=== PATIENT | male | born 1955 | race Caucasian/White ===

== ENCOUNTER 2018-12-29 18:58 | Emergency (ER) | payer MEDICARE ==
--- NOTE | 2018-12-29 20:37 | Emergency Department Report ---
Blank Doc - Documentation Documentation: This is a 63 y.o. male that presents with inability to void since 1300. History of BPH. He was seen at [facility] today. They took a catheter out and he voided once while in office and haven't voided since. He reports constant pressure to suprapubic region. This initial assessment diagnostic orders/clinical plan/treatment (s) is/Are subject change based on patient's health status, clinical progression and re- assessment by fellow clinical providers in the ED. Further treatment and work-up at subsequent clinical providers discretion. Patient/guardians urged not to elope from their condition may be serious if not clinically assessed and managed. Initial order include: Labs and bedside US. Main ED for further evaluation.
[2018-12-29 20:55] LABS: Basophils % (Auto) 0.3 % (0.0-1.8); Eosinophils % (Auto) 0.1 % (0.0-4.3); Hematocrit 43.9 % (35.5-45.6); Hemoglobin 15.1 gm/dl (11.8-15.2); Lymphocytes # (Auto) 1.8 K/mm3 (1.2-5.4); Lymphocytes % (Auto) 10.8 % (13.4-35.0); Mean Corpuscular HGB Conc 34 % (32-34); Mean Corpuscular Volume 92 fl (84-94); Monocytes # (Auto) 1.3 K/mm3 (0.0-0.8); Monocytes % (Auto) 7.8 % (0.0-7.3); Platelet Count 167 K/mm3 (140-440); Red Blood Count 4.78 M/mm3 (3.65-5.03); Red Cell Distribution Width 12.8 % (13.2-15.2)
--- NOTE | 2018-12-29 21:17 | Emergency Department Report ---
ED Male HPI - General Chief complaint: Urogenital-Male Stated complaint: CANNOT URINATE Time Seen by Provider: 12/29/18 21:06 Source: patient Mode of arrival: Ambulatory Limitations: No Limitations - History of Present Illness Initial comments: Patient is a 63-year-old male to emergency room with urinary retention. Patient states 2 days ago had a prostate biopsy and had a Santana placed for urinary retention 3 hours after the biopsy. Patient states that his urologist called him 24 hours later and told to remove the Santana. Patient states that ever since he remove the Santana he has not urinated. Patient states had a few drops of blood from his penis. But no urinating. Patient is complaining of lower abdominal pressure. Patient states the pain is a 8 out of 10. Patient denies fever chills. Patient denies chest pain or shortness of breath. Patient denies headache. Patient denies dizziness. MD Complaint: other (urinary retention) -: Sudden Location: abdomen Severity: severe Severity scale (0 -10): 8 Quality: aching Consistency: constant Improves with: rest Worsens with: movement recent surgery urinary retention - Related Data Sexually active: No Previous Rx's Medication Instructions Recorded Last Taken Type RX: Sulfamethoxazole/Trimethoprim 1 each PO BID 10 Days #20 tablet 12/29/18 Unknown Rx [Bactrim DS TAB] Allergies Allergy/AdvReac Type Severity Reaction Status Date / Time No Known Allergies Allergy Unverified 12/29/18 19:03 ED Review of Systems ROS: Stated complaint: CANNOT URINATE Other details as noted in HPI Constitutional: denies: chills, fever Eyes: denies: eye pain, eye discharge, vision change ENT: denies: ear pain, throat pain Respiratory: denies: cough, shortness of breath, wheezing Cardiovascular: denies: chest pain, palpitations Endocrine: no symptoms reported Gastrointestinal: abdominal pain. denies: nausea, diarrhea Genitourinary: hematuria. denies: urgency, dysuria Musculoskeletal: denies: back pain, joint swelling, arthralgia Skin: denies: rash, lesions Neurological: denies: headache, weakness, paresthesias Psychiatric: denies: anxiety, depression Hematological/Lymphatic: denies: easy bleeding, easy bruising ED Past Medical Hx - Past Medical History Previous Medical History?: Yes Additional medical history: Prostate enlargement - Surgical History Past Surgical History?: No Additional Surgical History: prostate bx. - Family History Family history: no significant - Social History Smoking Status: Never Smoker Substance Use Type: None - Medications Home Medications: Home Medications Medication Instructions Recorded Confirmed Last Taken Type RX: Sulfamethoxazole/Trimethoprim 1 each PO BID 10 Days #20 tablet 12/29/18 Unknown Rx [Bactrim DS TAB] ED Physical Exam - General Limitations: No Limitations General appearance: alert, in no apparent distress - Head Head exam: Present: atraumatic, normocephalic - Eye Eye exam: Present: normal appearance - ENT ENT exam: Present: mucous membranes moist - Neck Neck exam: Present: normal inspection - Respiratory Respiratory exam: Present: normal lung sounds bilaterally. Absent: respiratory distress - Cardiovascular Cardiovascular Exam: Present: regular rate, normal rhythm. Absent: systolic murmur, diastolic murmur, rubs, gallop - GI/Abdominal GI/Abdominal exam: Present: soft, distended (palpable bladder), tenderness (suprapubic), normal bowel sounds - Rectal Rectal exam: Present: deferred - Extremities Exam Extremities exam: Present: normal inspection - Back Exam Back exam: Present: normal inspection - Neurological Exam Neurological exam: Present: alert, oriented X3 - Psychiatric Psychiatric exam: Present: normal affect, normal mood - Skin Skin exam: Present: warm, dry, intact, normal color. Absent: rash ED Course Vital Signs 12/29/18 12/29/18 12/29/18 19:19 20:31 23:38 Temperature 98.4 F 98.4 F 98.2 F Pulse Rate 117 H 113 H 94 H Respiratory 18 18 16 Rate Blood Pressure 145/90 145/90 Blood Pressure 128/92 [Right] O2 Sat by Pulse 95 96 96 Oximetry - Reevaluation(s) Reevaluation #1: Initial evaluation done and patient will have a Santana placed by nurse. Abdomen tender in the suprapubic region. 12/29/18 21:06 Santana placed and patient is stating that his symptoms have resolved. Labs are pending. No tenderness on palpation of abdomen. 1600 mL removed. 12/29/18 22:15 Discussed all results patient. Patient's UA is positive for a UTI. Patient was given antibiotics dose prior to discharge. Patient states he is pain-free. Patient stable at discharge. Patient agrees with plan of care and discharge. Patient was discharged home. Patient given discharge instructions. Patient was understanding of all discharge instructions.. 12/29/18 22:44 ED Medical Decision Making - Lab Data Result diagrams: 12/29/18 20:42 12/29/18 20:42 - Medical Decision Making Patient is a 63-year-old male presents emergency room with urinary retention. Patient had a Santana placed and symptoms immediately resolved. The patient will be discharged with Santana. Patient given Santana instructions. Patient's labs unremarkable except for pyuria and hematuria on UA. Patient will be treated for a UTI. Patient's WBC is elevated most likely secondary to stress reaction. Patient responded well to therapy. Patient instructed to follow-up with his urologist on Tuesday. Patient had an output of 1600 and medially into the Santana. Patient had a leg bag placed prior to discharge. Patient is stable for discharge. Patient given discharge instructions. Patient was understanding of all instructions. Patient will be given antibiotics for UTI. - Differential Diagnosis urinary retention. UTI. Prostatitis. Critical care attestation.: If time is entered above; I have spent that time in minutes in the direct care of this critically ill patient, excluding procedure time. ED Disposition Clinical Impression: Urinary retention, Santana catheter in place Abdominal pain Qualifiers: Abdominal location: lower abdomen, unspecified Qualified Code(s): R10.30 - Lower abdominal pain, unspecified UTI (urinary tract infection) Qualifiers: Urinary tract infection type: acute cystitis Hematuria presence: with hematuria Qualified Code(s): N30.01 - Acute cystitis with hematuria Disposition: TO HOME OR SELFCARE Is pt being admited?: No Does the pt Need Aspirin: No Condition: Stable Instructions: Urinary Retention in Men (ED), Urinary Tract Infection in Men (ED), Santana Catheter Placement and Care (ED), Urinary Leg Bag (GEN) Additional Instructions: Patient to follow up with primary care in 2-3 days. Patient to follow up with urologist in 2-3 days. Patient to return to the ER if condition worsens. Patient to leave Santana in until discontinued by urologist. Patient to take antibiotics as directed. Patient to take Tylenol or ibuprofen when necessary for pain. Patient to rest P patient increase water. Prescriptions: RX: Sulfamethoxazole/Trimethoprim [Bactrim DS TAB] 1 each PO BID 10 Days #20 tablet Referrals: SHI GOMEZ MD [Primary Care Provider] - 2-3 Days Time of Disposition: 22:51
[2018-12-29 21:19] LABS: Alanine Aminotransferase 15 units/L (7-56); Albumin 4.5 g/dL (3.9-5); BUN/Creatinine Ratio 11; Blood Urea Nitrogen 10 mg/dL (9-20); Calcium 9.2 mg/dL (8.4-10.2); Hemolysis Index 6
[2018-12-29 21:54] LABS: Bilirubin,Urine NEG (Negative); Blood,Urine LG (Negative); Color,Urine Yellow (Yellow); Urobilinogen,Urine < 2.0 mg/dL (<2.0)
[2018-12-29 21:55] LABS: RBC,Urine > 182.0 /HPF (0.0-6.0)
[2018-12-29] MEDS ORDERED: BACTRIM DS PO ONE (22:46)
[2018-12-29 23:39] VITALS: BP 128/92
== END 2018-12-29 23:44 | disposition home or self-care (01) ==
LOC: ED 18:58
DX: N30.01 Acute cystitis with hematuria (principal); R33.9 Retention of urine, unspecified
CPT/HCPCS: 36415; 51702; 80053; 81001; 85025; 99283; 99284

== ENCOUNTER 2022-05-20 09:42 | Emergency (ER) | payer MEDICARE ==
[2022-05-20 10:00] VITALS: BP 129/81
[2022-05-20 15:29] LABS: Calcium Oxalate Crystals,Urine 2+; Hyaline Casts,Urine 17 /LPF
[2022-05-20 15:40] LABS: RBC,Urine > 182.0 /HPF (0.0-6.0)
[2022-05-20 15:41] LABS: Bilirubin,Urine Negative (Negative); Blood,Urine Large (Negative); Color,Urine Straw (Yellow)
[2022-05-20 15:42] LABS: Urobilinogen,Urine < 2.0 mg/dL (<2.0)
== END 2022-05-20 12:00 | disposition left against medical advice (07) ==
LOC: ED 09:42
DX: R31.9 Hematuria, unspecified (principal); Z53.21 Procedure and treatment not carried out due to patient leaving prior to being seen by health care provider
CPT/HCPCS: 81001; 87086